=== PATIENT | male | born 1945 | race Caucasian/White ===

== ENCOUNTER → 2020-04-16 | Outpatient (CLI) | payer MEDICARE, OTHER ==
[~2020-04-16] MED LIST: ANORO ELLIPTA1 EACH INH; BREO ELLIPTA 11 EACH INH; PREDNISONE 10 M10 MG GT; THEOPHYLLINE600 MG PO; VENTOLIN HFA 66.7 GM INH; VIBRAMYCIN 100100 MG PO; VITAMIN B COMP1 EAC1 PO; VITAMIN D400 UNI2 PO
== END ==
LOC: HEART 5 14:14
DX: J44.9 Chronic obstructive pulmonary disease, unspecified (principal); R91.8 Other nonspecific abnormal finding of lung field; R94.2 Abnormal results of pulmonary function studies
CPT/HCPCS: 71046; 94010